=== PATIENT | female | born 1975 | race Caucasian/White ===

== ENCOUNTER → 2018-07-26 | Outpatient (CLI) | payer OTHER ==
[~2018-07-26] MED LIST: AUGMENTIN 875875 M1; BISACODYL10 MG RC; CRANBERRY400 MG; IBUPROFEN 600600 M1 PO; LEVOTHYROXIN0.025 MG PO; LEVOTHYROXIN0.075 MG PO; MACRODANTIN100 MG PO; MACRODANTIN25 MG; NORCO 5-325 TA1 EACH; NORCO 5-325 TA1 EACH PO; PERCOCET 5-3251 EACH; PROAIR HFA8.5 GM INH; SENNA; SIMETHICON CHEW80 MG PO; SINGULAIR 10 MG10 M1 PO; SPRINTEC1 EACH PO; TYLENOL325 MG PO
== END ==
LOC: RAD 15:19
DX: Z12.31 Encounter for screening mammogram for malignant neoplasm of breast (principal)

== ENCOUNTER → 2018-10-08 | Outpatient (CLI) | payer OTHER | LOC: RAD 13:30 | DX: M25.512 Pain in left shoulder (principal) ==

== ENCOUNTER → 2019-12-10 | Outpatient (CLI) | payer OTHER | LOC: RAD 14:59 | PROVIDERS: ATTEND Nurse Practitioner | DX: Z12.31 Encounter for screening mammogram for malignant neoplasm of breast (principal) ==

== ENCOUNTER → 2020-12-31 | Outpatient (CLI) | payer BC, OTHER | END | disposition home or self-care (01) | LOC: BC 11:12 | PROVIDERS: ATTEND Nurse Practitioner | DX: Z12.31 Encounter for screening mammogram for malignant neoplasm of breast (principal) ==